=== PATIENT | female | born 1980 ===

== ENCOUNTER 2024-06-03 12:15 | Inpatient (IN) | payer OTHER ==
[~2024-06-03] VITALS: Ht 170.2 cm; Wt 68.9 kg
[2024-06-03] MEDS ORDERED: PROZAC20 MG PO (15:01)
[2024-06-03] MEDS ORDERED: CLONAZEPAM0.5 M1 PO (15:01)
[2024-06-03] MEDS ORDERED: TOPAMAX25 MG PO (15:01)
[2024-06-03] MEDS ORDERED: ABILIFY10 MG PO (15:01)
[2024-06-09] MEDS ORDERED: RINGERS SOLUTION,LACTATED 1,000 ML IV SCH (18:15)
[2024-06-09] MEDS ORDERED: ONDANSETRON HCL 2 MG/ML VIAL IV PRN (18:15)
[2024-06-09] MEDS ORDERED: CEFOXITIN SODIUM 2,000 MG VIAL IV ONE (18:45)
[2024-06-09] MEDS ORDERED: POVIDONE-IODINE 118 ML BOTT TOP ONE (18:45)
[2024-06-09] MEDS ORDERED: FAMOTIDINE/PF 20 MG/2 ML VIAL IV SCH (21:00)
[2024-06-09] MEDS ORDERED: DOCUSATE SODIUM 100MG CAP PO SCH (21:00)
[2024-06-09 21:33] LABS: HEMOGLOBIN 12.7 g/dL (12.0-15.00); MEAN CELL VOLUME 92.4 fL (80.00-100.00); MEAN CORPUSCULAR HEMOGLOBIN 31.9 pg (27.00-32.0); MEAN CORPUSCULAR HGB CONC 34.5 g/dl (32.0-36.0); PLATELET COUNT 270 K/uL (150-450); RED CELL DISTRIBUTION WIDTH 12.6 % (11.5-14.5)
[2024-06-09 21:50] LABS: CALCIUM 8.7 mg/dL (8.5-10.1); CREATININE SERUM 0.66 mg/dL (0.55-1.02); GFR 97.74; POTASSIUM 3.84 mEq/L (3.5-5.1)
[2024-06-10] MEDS ORDERED: MORPHINE SULFATE 4 MG/ML CARTRIDGE IV SCH
[2024-06-10] MEDS ORDERED: KETOROLAC TROMETHAMINE 30 MG VIAL IV SCH (01:00)
[2024-06-10] MEDS ORDERED: CEFOXITIN SODIUM 2,000 MG VIAL IV SCH (01:00)
[2024-06-10 06:35] LABS: CALCIUM 8.6 mg/dL (8.5-10.1); CREATININE SERUM 0.74 mg/dL (0.55-1.02); GFR 85.65; POTASSIUM 3.82 mEq/L (3.5-5.1)
[2024-06-10] MEDS ORDERED: ENOXAPARIN SODIUM 40 MG/0.4 ML SYRINGE SUBCUTANEO SCH (09:00)
[2024-06-10] MEDS ORDERED: SIMETHICONE 125 MG CAPSULE PO SCH (09:00)
[2024-06-10] MEDS ORDERED: KETOROLAC TROMETHAMINE 10 MG TABLET PO ONE (09:00)
== END 2024-06-10 10:34 | disposition home or self-care (01) | DRG 743 ==
LOC: O/R 06-09 07:38 → SURH 06-09 12:15 → OB/GYN 06-09 19:44
PROVIDERS: Obstetrics & Gynecology; ADMIT Obstetrics & Gynecology Gynecologic Oncology; ATTEND Obstetrics & Gynecology Gynecologic Oncology
PROC: 0UT74ZZ Resection of Bilateral Fallopian Tubes, Percutaneous Endoscopic Approach (ICD-10-PCS; 2024-06-09)
PROC: 0USG4ZZ Reposition Vagina, Percutaneous Endoscopic Approach (ICD-10-PCS; 2024-06-09)
PROC: 0UT94ZZ Resection of Uterus, Percutaneous Endoscopic Approach (ICD-10-PCS; principal; 2024-06-09 14:45)
DX: D25.1 Intramural leiomyoma of uterus (principal); D25.2 Subserosal leiomyoma of uterus; N80.03 Adenomyosis of the uterus; Z20.822 Contact with and (suspected) exposure to COVID-19